=== PATIENT | female | born 1950 | race Caucasian/White ===

== ENCOUNTER 2024-04-12 18:23 | Emergency (ER) | payer MEDICARE, OTHER ==
[~2024-04-12] VITALS: Ht 154.9 cm; Wt 78.5 kg
[~2024-04-12 18:23] MED LIST: ASPI81TA44 PO; IBUP-2715 PO; SUMA50TA PO; VALS160T2 PO
[2024-04-12 18:36] VITALS: BP 186/86; TEMP 98; O2SAT 97
[2024-04-12] MEDS ORDERED: METHOCARBAMOL (500MG) 500 MG TABLET ONE (19:52)
[2024-04-12] MEDS ORDERED: ACETAMINOPHEN ES 500 MG TABLET ONE (19:52)
[2024-04-12] MEDS ORDERED: LIDOCAINE 5% (PATCH) 1 EA PATCH TP ONE (19:52)
[2024-04-12] MEDS ORDERED: predniSONE 20 MG TABLET ONE (19:52)
[2024-04-12] MEDS: LIDOCAINE 5% (PATCH) 1 EA PATCH TP SCH (19:53)
[2024-04-12] MEDS ORDERED: NAPROXEN 250 MG TABLET ONE (19:53)
[2024-04-12] MEDS: NAPROXEN 250 MG TABLET PO ONE (19:54)
[2024-04-12] MEDS: METHOCARBAMOL (750MG) 750 MG TABLET PO SCH (19:56)
[2024-04-12] MEDS: ACETAMINOPHEN ES 500 MG TABLET PO ONE (20:03)
[2024-04-12] MEDS: predniSONE 20 MG TABLET PO ONE (20:03)
[2024-04-12] MEDS ORDERED: METH-649 PO (20:12)
[2024-04-12] MEDS ORDERED: NAPR-1009 PO (20:12)
[2024-04-12] MEDS ORDERED: LIDO30AD10 TP (20:12)
[2024-04-12] MEDS ORDERED: HYDROCODONE/APAP 5/325MG TABLET PO ONE (20:30)
== END 2024-04-12 20:33 | disposition home or self-care (01) ==
LOC: ER 19:00
DX: M54.59 Other low back pain (principal); M19.90 Unspecified osteoarthritis, unspecified site; Z90.710 Acquired absence of both cervix and uterus